=== PATIENT | male | born 2000 | race Caucasian/White ===

== ENCOUNTER 2021-07-21 10:56 | Emergency (ER) | payer OTHER ==
[~2021-07-21] VITALS: Ht 175.3 cm; Wt 76.1 kg
[2021-07-21] MEDS ORDERED: IBUPROFEN 600 MG TABLET. PO ONE (11:15)
--- NOTE | 2021-07-21 11:31 | RAD ---
XR EXAM OF ANKLE_RIGHT 3VIEWS History: Right ankle pain. Comparison: None. Technique: 3 views of the right ankle. Findings: Osseous mineralization is normal. No fracture or dislocaton. No significant degenerative changes. The ankle mortise and talar dome are intact. There is moderate soft tissue swelling overlying the distal fibula. Impression: 1. Soft tissue swelling without acute osseous abnormality of the right ankle. Electronically signed by: Bill Gray MD (07/21/2021 11:28 AM) [id number]
--- NOTE | 2021-07-21 11:53 | PHYS DOC ---
Past History Past Surgical History: Other (TJ LARA APRN) General Adult EDM: Chief Complaint: ANKLE PROBLEM HPI: HPI: Patient is a 20-year-old male presents with right ankle pain. Patient states he was playing soccer when he rolled his ankle. Incident occurred 3 days ago. Patient still has range of motion and able to ambulate on his own. Ankle is swollen and bruised. Patient states has been taking ibuprofen at home which is helped. Denies medical history. (TJ LARA APRN) Review of Systems: Review of Systems: Constitutional: Denies fever or chills Eyes: Denies change in visual acuity HENT: Denies nasal congestion or sore throat Respiratory: Denies cough or shortness of breath Cardiovascular: Denies chest pain or edema GI: Denies abdominal pain, nausea, vomiting, bloody stools or diarrhea : Denies dysuria Musculoskeletal: Right ankle pain Integument: Bruising and swelling to right ankle Neurologic: Denies headache, focal weakness or sensory changes Endocrine: Denies polyuria or polydipsia Lymphatic: Denies swollen glands Psychiatric: Denies depression or anxiety (TJ LARA APRN) Current Medications: Current Meds: Current Medications Medications (Trade) Dose Ordered Sig/Mariah Start Time Stop Time Status Last Admin Dose Admin Ibuprofen (Motrin) 600 mg 1X ONCE 07/21/21 11:15 07/21/21 11:16 DC 07/21/21 11:23 600 MG (TJ LARA APRN) Allergies: Allergies: Allergies Coded Allergies Type Severity Reaction Last Updated Verified No Known Drug Allergies 07/21/21 No (TJ LARA APRN) Physical Exam: PE: Constitutional: Well developed, well nourished, no acute distress, non-toxic appearance. [] HENT: Normocephalic, atraumatic, bilateral external ears normal, oropharynx moist, no oral exudates, nose normal. [] Eyes: PERRLA, EOMI, conjunctiva normal, no discharge. [] Neck: Normal range of motion, no tenderness, supple, no stridor. [] Cardiovascular:Heart rate regular rhythm, no murmur [] Lungs & Thorax: Bilateral breath sounds clear to auscultation [] Abdomen: Bowel sounds normal, soft, no tenderness, no masses, no pulsatile masses. [] Skin: Bruising and swelling to right ankle Back: No tenderness, no CVA tenderness. [] Extremities: Right ankle tenderness, no cyanosis, ROM intact Neurologic: Alert and oriented X 3, normal motor function, normal sensory function, no focal deficits noted. [] Psychologic: Affect normal, judgement normal, mood normal. [] (TJ LARA APRN) Current Patient Data: Vital Signs: Vital Signs Date Time Temp Pulse Resp B/P (MAP) Pulse Ox O2 Delivery O2 Flow Rate FiO2 07/21/21 10:56 97.7 69 18 111/57 99 Room Air (TJ LARA APRN) EKG: EKG: [] (TJ LARA APRN) Radiology/Procedures: Radiology/Procedures: []R EXAM OF ANKLE_RIGHT 3VIEWS History: Right ankle pain. Comparison: None. Technique: 3 views of the right ankle. Findings: Osseous mineralization is normal. No fracture or dislocaton. No significant degenerative changes. The ankle mortise and talar dome are intact. There is moderate soft tissue swelling overlying the distal fibula. Impression: 1. Soft tissue swelling without acute osseous abnormality of the right ankle. Electronically signed by: Bill Gray MD (07/21/2021 11:28 AM) [id number] (TJ LARA APRN) Heart Score: C/O Chest Pain: No Risk Factors: Risk Factors: DM, Current or recent (<one month) smoker, HTN, HLP, family history of CAD, obesity. Risk Scores: Score 0 - 3: 2.5% MACE over next 6 weeks - Discharge Home Score 4 - 6: 20.3% MACE over next 6 weeks - Admit for Clinical Observation Score 7 - 10: 72.7% MACE over next 6 weeks - Early Invasive Strategies (TJ LARA APRN) Course & Med Decision Making: Course & Med Decision Making Pertinent Labs and Imaging studies reviewed. (See chart for details) [] 20 oh male presents with right ankle pain after rolling his ankle while playing soccer 3 days ago. Range of motion intact. Pedal pulses intact. Ankle has bruising and swelling. Right ankle x-ray ordered. 600 mg ibuprofen given. X-rays negative for fracture. Discussed results with patient. Advised patient to use ice to the area and ibuprofen at home for discomfort. Patient should make a follow-up appointment with his PCP if pain continues or return to the emergency room. Patient is hemodynamically stable upon disposition (TJ LARA APRN) Dragon Disclaimer: Domingo Disclaimer: This electronic medical record was generated, in whole or in part, using a voice recognition dictation system. (TJ LARA APRN) Attending Co-Sign The patient was seen and interviewed as well as examined at the bedside. The chart was reviewed. The case was discussed. Agree with the plan of care. (CHRISTIANO PRIETO DO) Departure Departure: Impression: Primary Impression: Ankle pain, right Qualified Codes: M25.571 - Pain in right ankle and joints of right foot Disposition: HOME / SELF CARE / HOMELESS Condition: STABLE Referrals: PCP,UNKNOWN (PCP) Patient Instructions: Ankle Pain Additional Instructions: You were seen in the emergency room for right ankle pain. X-ray was negative for fracture. Try and rest, use ice to the area, elevate to help with swelling and pain. Take ibuprofen at home for discomfort. Follow-up with PCP if pain c ontinues to return to emergency room. EMERGENCY DEPARTMENT GENERAL DISCHARGE INSTRUCTIONS Thank you for coming to [facility] (ED) today and trusting us with you care. We trust that you had a positivie experience in our Emergency Department. If you wish to speak to the department management, you may call the director at [phone]. YOUR FOLLOW UP INSTRUCTIONS ARE FOLLOWS: 1. Do you have a private Doctor? If you do not have a private doctor, please ask for a resource list of physicians or clinics that may be able to assist you with follow up care. 2. The Emergency Physician has interpreted your x-rays. The X-Ray specialist will also review them. If there is a change in the findings, you will be notified in 48 hours when at all possible. 3. A lab test or culture has been done, your results will be reviewed and you will be notified if you need a change in treatment. ADDITIONAL INSTRUCTIONS AND INFORMATION: 1. Your care today has been supervised by a physician who is specially trained in emergency care. Many problems require more than one evaluation for a complete diagnosis and treatment. We recommend that you schedule your follow up appointment as recommended to ensure complete treatment of you illness or injury. If you are unable to obtain follow up care and continue to have a problem, or if your condition worsens, we recommend that you return to the ED. 2. We are not able to safely determine your condition over the phone nor are we able to give sound medical advice over the phone. For these safety reasons, if you call for medical advice we will ask you to come to the ED for further evaluation. 3. If you have any questions regarding these discharge instructions please call the ED at [phone]. SAFETY INFORMATION: In the interest of safety, wellness, and injury prevention; we encourage you to wear your sealbelt, if you smoke; quite smoking, and we encourage family to use a protective helmet for bicycling and other sporting events that present an increased risk for head injury. IF YOUR SYMPTOMS WORSEN OR NEW SYMPTOMS DEVELOP, OR YOU HAVE CONCERNS ABOUT YOUR CONDITION; OR IF YOUR CONDITION WORSENS WHILE YOU ARE WAITING FOR YOUR FOLLOW UP APPOINTMENT; EITHER CONTACT YOUR PRIMARY CARE DOCTOR, THE PHYSICIAN WHOSE NAME AND NUMBER YOU WERE GIVEN, OR RETURN TO THE ED IMMEDIATELY. TJ LARA APRN Jul 21, 2021 11:53 CHRISTIANO PRIETO DO Jul 24, 2021 10:14
[2021-07-21 12:05] VITALS: BP 107/49
== END 2021-07-21 12:05 | disposition home or self-care (01) ==
LOC: ER 10:56
DX: S90.01XA Contusion of right ankle, initial encounter (principal); X50.9XXA Other and unspecified overexertion or strenuous movements or postures, initial encounter; Y93.66 Activity, soccer; Y92.89 Other specified places as the place of occurrence of the external cause; Y99.8 Other external cause status
CPT/HCPCS: 73610; 99283